=== PATIENT | male | born 1935 ===

== ENCOUNTER 2021-04-01 14:05 | Emergency (ER) | payer MEDICARE, OTHER ==
[~2021-04-01] VITALS: Ht 172.7 cm; Wt 72.6 kg
[2021-04-01] MEDS ORDERED: SODIUM CHLORIDE 0.9% 1,000 ML IVB ONE (14:45)
[2021-04-02 00:40] VITALS: BP 128/94
== END 2021-04-01 23:29 | disposition home or self-care (01) ==
LOC: ER 14:05 → EDBD 14:05 → ER 23:29
DX: S01.01XA Laceration without foreign body of scalp, initial encounter (principal); I10 Essential (primary) hypertension; E78.5 Hyperlipidemia, unspecified; F17.210 Nicotine dependence, cigarettes, uncomplicated; F10.129 Alcohol abuse with intoxication, unspecified; W18.09XA Striking against other object with subsequent fall, initial encounter; Y93.89 Activity, other specified; Y92.89 Other specified places as the place of occurrence of the external cause; Y99.8 Other external cause status; Y90.8 Blood alcohol level of 240 mg/100 ml or more
CPT/HCPCS: 12004; 70450; 72125